=== PATIENT | female | born 1995 | race Two or more races ===

== ENCOUNTER 2018-11-10 10:11 | Outpatient (CLI) | payer OTHER | END 2018-11-10 15:00 | disposition home or self-care (01) | LOC: LAB 10:11 | DX: D50.0 Iron deficiency anemia secondary to blood loss (chronic) (principal); E11.9 Type 2 diabetes mellitus without complications; N95.1 Menopausal and female climacteric states; N85.3 Subinvolution of uterus; N93.8 Other specified abnormal uterine and vaginal bleeding ==